=== PATIENT | male | born 1970 | race Caucasian/White ===

== ENCOUNTER 2021-12-16 15:13 | Emergency (ER) | payer OTHER ==
[~2021-12-16] VITALS: Ht 177.8 cm; Wt 98.0 kg
[2021-12-16] MEDS ORDERED: GLUCAGON,HUMAN RECOMBINANT 1 MG KIT. IV ONE (16:00)
--- NOTE | 2021-12-16 16:17 | PHYS DOC ---
Past History Past Surgical History: Other Additional Past Surgical Histo: MUSCLE ON TOP OF STOMACH Alcohol Use: Occasionally General Adult EDM: Chief Complaint: DIFFICULTY SWALLOWING HPI: HPI: Patient is a 51-year-old male presents with feeling of something stuck in his throat. Patient states he was eating a [place] dish when he felt like something got stuck. Patient states he vomited in the let us came up but the meat did not. Patient needs to be as meat stuck in his throat. Patient states that he had this happen 15 years ago and had to have his esophagus dilated. Denies vomiting. Patient is unable to swallow his own saliva due to making him feel like he wants to puke. Patient spitting saliva into a cup. Patient states "in the past when this happened I can drink Coca-Cola which will get it to come down, but this time it did not". Patient is hemodynamically stable does not appear to be any respiratory distress. Review of Systems: Review of Systems: ROS At least 10 ROS systems have been reviewed and are negative except as documented in the HPI. General: Negative except as outlined in HPI above. Skin: Negative except as outlined in HPI above. HEENT: Negative except as outlined in HPI above. Neck: Negative except as outlined in HPI above. Respiratory: Negative except as outlined in HPI above.. Cardiovascular: Negative except as outlined in HPI above. Abdomen: Negative except as outlined in HPI above. : Negative except as outlined in HPI above. Back/MSK: Negative except as outlined in HPI above. Neuro: Negative except as outlined in HPI above. Psych: Negative except as outlined in HPI above. Current Medications: Current Meds: Current Medications Medications (Trade) Dose Ordered Sig/Eri Start Time Stop Time Status Last Admin Dose Admin Glucagon (Glucagen Kit) 1 mg 1X ONCE 12/16/21 16:00 12/16/21 16:01 DC Allergies: Allergies: Allergies Coded Allergies Type Severity Reaction Last Updated Verified No Known Drug Allergies 12/16/21 No Physical Exam: PE: Constitutional: Well developed, well nourished, no acute distress, non-toxic appearance. [] HENT: bilateral external ears normal, oropharynx moist, no oral exudates, nose normal. [] Eyes: PERRLA, conjunctiva normal, no discharge. [] Neck: Normal range of motion, no tenderness, supple, no stridor. [] Cardiovascular:Heart rate regular rhythm, no murmur [] Lungs & Thorax: Bilateral breath sounds clear to auscultation [] Abdomen: Bowel sounds normal, soft, no tenderness, no masses, no pulsatile masses. [] Skin: Warm, dry, no erythema, no rash. [] Back: No tenderness, no CVA tenderness. [] Extremities: No tenderness, no cyanosis, no clubbing, ROM intact, no edema. [] Neurologic: Alert and oriented X 3, normal motor function, normal sensory function, no focal deficits noted. [] Psychologic: Affect normal, judgement normal, mood normal. [] Current Patient Data: Vital Signs: Vital Signs Date Time Temp Pulse Resp B/P (MAP) Pulse Ox O2 Delivery O2 Flow Rate FiO2 12/16/21 15:24 97.8 76 18 133/91 (105) 97 Room Air EKG: EKG: [] Radiology/Procedures: Radiology/Procedures: [] Heart Score: C/O Chest Pain: No Risk Factors: Risk Factors: DM, Current or recent (<one month) smoker, HTN, HLP, family history of CAD, obesity. Risk Scores: Score 0 - 3: 2.5% MACE over next 6 weeks - Discharge Home Score 4 - 6: 20.3% MACE over next 6 weeks - Admit for Clinical Observation Score 7 - 10: 72.7% MACE over next 6 weeks - Early Invasive Strategies Course & Med Decision Making: Course & Med Decision Making Pertinent Labs and Imaging studies reviewed. (See chart for details) [] 51-year-old male presents with feeling of something stuck in his throat. Patient states in the past he has drank Coca-Cola which is helped with the feeling, but this time it did not. Patient is spitting his saliva into a cup because swallowing it makes him feel like he wants to vomit. Patient given glucagon help with symptoms. Glucagon was unsuccessful. Patient attempted to drink Coca-Cola after taking the glucagon and had to spit it all back up. I spoke with Dr. Carrasco from GI at [facility]. Dr. Carrasco agreed to have patient sent for admission at [place] for further consult. Spoke with hospitalist, Dr. Freeman, at [facility] who will be accepting patient. Patient is requesting to go POV to [facility]. Patient is hemodynamically stable, alert and oriented. Patient discharged with . Dewey Disclaimer: Dewey Disclaimer: This electronic medical record was generated, in whole or in part, using a voice recognition dictation system. Departure Departure: Impression: Primary Impression: Food impaction of esophagus Qualified Codes: T18.128A - Food in esophagus causing other injury, initial encounter Disposition: 02 SHORT TERM HOSPITAL Condition: STABLE Referrals: [id number] (PCP) ANABEL SNOW APRN Dec 16, 2021 16:17
[2021-12-16 19:31] VITALS: BP 125/74
== END 2021-12-16 19:57 | disposition short-term general hospital (02) ==
LOC: ER 15:13
DX: T18.128A Food in esophagus causing other injury, initial encounter (principal); X58.XXXA Exposure to other specified factors, initial encounter; Y93.89 Activity, other specified; Y92.89 Other specified places as the place of occurrence of the external cause; Y99.8 Other external cause status
CPT/HCPCS: 96374; 99285; J1610